=== PATIENT | female | born 1990 | race Caucasian/White ===

== ENCOUNTER → 2018-05-03 12:46 | Outpatient (CLI) | payer OTHER, SELFPAY ==
[2018-05-08 08:14] LABS: HPV Reflexed? NOT INDICATED
== END ==
PROVIDERS: Family Provider Pediatrics; PCP Pediatrics; Visit Provider Nurse Practitioner
DX: Z01.419 Encounter for gynecological examination (general) (routine) without abnormal findings (principal)
CPT/HCPCS: 88175; G0145